=== PATIENT | female | born 1965 | race Caucasian/White ===

== ENCOUNTER 2017-12-20 05:50 | Day surgery (SDC) | payer OTHER, SELFPAY ==
[2017-12-20] VITALS (7 sets, daily range): BP systolic 89–111; BP diastolic 42–72; PULSE 58–76; RESP 16–18; TEMP 36.2–36.8; O2SAT 99–100; BMI 26.9
--- NOTE | 2017-12-20 06:56 | PCM.HP.STD ---
Problem List (1) Rectal bleeding Status: Acute History of Present Illness Date of Admission: 12/20/17 The patient is a 52 year old F who presents with bouts of rectal bleeding. She thinks it may be hemorrhoids. She has never had a previous colonoscopy. There is no family history of colon cancer. She denies abdominal pain. She has not had any weight loss. Past Medical History Allergies codeine Allergy (Verified 11/19/17 07:29) Angioedema tetracycline Allergy (Verified 11/19/17 07:29) Angioedema Home Medications: Ambulatory Orders Medication Instructions Recorded Multivitamin [Daily Multiple 1 ea PO DAILY 04/05/17 Vitamin] Surgical History: - - Breast cyst aspiration Skin lesion removals Smoking Status: Never smoker Review of Systems Constitutional: Denies: Weight Change Eyes: Denies: Blurred vision, Vision Change HEENT: Denies: Ear Pain, Eye Pain Cardiovascular: Denies: Chest Pain, Claudication Respiratory: Denies: Cough, Shortness of Breath Gastrointestinal: Denies: Hematemesis, Hematochezia Genitourinary: Denies: Dysuria, Hematuria Musculoskeletal: Denies: Leg Pain Skin: Denies: Jaundice Neurological: Denies: Confusion Psychiatric: Denies: Depression Endocrine: Denies: Change in Body Habitus Hematologic/ Lymphatic: Denies: Easy Bleeding VTE Information - Inpt Only VTE Present on Admission: No Patient Problems: Active and Suspected Problems (Last Updated 11/19/17 @ 07:25 by Michelle Pearce) Rectal bleeding (Acute) - Physical Exam General: Alert, Oriented x3, Cooperative HEENT: Atraumatic Oral: Moist Mucosa Neck: Supple Lungs: Clear to auscultation Cardiovascular: Regular rate Abdomen: Bowel Sounds Present, Soft, Non Tender Extremities: No clubbing Skin: No rashes Musculoskeletal: No Tenderness to Palpation of Joints or Extremities Lymphatic: No Cervical, Supraclavicular, or Inguinal Adenopathy Neurological: Cranial nerves II-XII grossly intact Vital Signs Temp Pulse Resp BP Pulse Ox 97.1 F L 73 16 111/72 100 12/20/17 06:12 12/20/17 06:12 12/20/17 06:12 12/20/17 06:12 12/20/17 06:12 Oxygen Delivery Method Room Air Weight: 166 lb 7.184 oz Body Mass Index (BMI) 26.9 Assessment/Plan Active and Suspected Problems (Last Updated 11/19/17 @ 07:25 by Michelle Pearce) Rectal bleeding (Acute) I am recommending colonoscopy with possible biopsy or polypectomy is indicated. Very careful inspection of the anal rectal area will be pursued as well. She has had an opportunity to ask and have questions answered. We will proceed at her discretion. Matt Sheffield M.D., F.A.C.S.
--- NOTE | 2017-12-20 07:22 | PCM.OPRPT ---
Problem List (1) Rectal bleeding Status: Acute Report of Operation Date of Procedure: 12/20/17 Pre-Operative Diagnosis: Rectal bleeding Post-Operative Diagnosis: Internal hemorrhoids. Tortuous sigmoid colon Surgery/Procedure Performed:: colonoscopy Description of Surgical Findings:: Timeout and informed consent was obtained. 52-year-old female was taken to the endoscopy suite. She was placed in a left loud skin position. Digital rectal exam performed after IV sedation of 100 mg Demerol and 4 mg of Versed. Some mild internal hemorrhoids noted. Flexible colonoscope inserted into the rectum and advanced through a very tortuous sigmoid colon. The scope was advanced through the transverse colon with some transabdominal pressure into the ascending colon. The cecum ileocecal valve area was nicely achieved. Bowel prep was very good. The scope was carefully withdrawn from the ascending transverse descending and sigmoid colon. No acute abnormalities were identified. The scope was retroflexed within the rectum anorectal verge inspected grade 2 internal hemorrhoids noted no active bleeding. Impression Episode of rectal bleeding likely secondary to internal hemorrhoids. Conservative medical recommendations for hemorrhoidal treatment recommended. No previous colonoscopy. Next screening colonoscopy in 10 years. Cc: Dr. Ok Yang Medications were given at 0704. Procedure started 0707. Cecum was reached at 0713.07. Procedure was completed at 0719.32 Matt Sheffeild M.D., F.A.C.S. Type of Anesthesia:: IV Sedation
== END 2017-12-20 08:17 | disposition home or self-care (01) ==
LOC: EN 05:52 → AC 05:53
PROVIDERS: Family Provider Family Medicine; PCP Family Medicine; Visit Provider Surgery
PROC: 0DJD8ZZ Inspection of Lower Intestinal Tract, Via Natural or Artificial Opening Endoscopic (ICD-10-PCS; CPT 45378; principal; 2017-12-20 06:55)
DX: K62.5 Hemorrhage of anus and rectum (principal); K64.8 Other hemorrhoids
CPT/HCPCS: 45378; J7120

== ENCOUNTER → 2018-06-26 07:08 | Outpatient (CLI) | payer OTHER, SELFPAY ==
--- NOTE | 2018-06-26 07:11 | BI_ITS ---
MAMMOGRAPHY - BILATERAL SCREENING REASON FOR EXAM: Female, 52 years old. Routine annual screening examination. PERTINENT HISTORY: Non-contributory. TECHNIQUE: Digital bilateral breast reinier (3D mammographic acquisition) in the CC and MLO projections. 2-D mediolateral oblique (MLO) and craniocaudad (CC) views of both breasts were obtained. CAD: Full Field Digital Mammography with Computer Added Detection was performed. COMPARISON: Comparison is made with prior study dated June 11, 2017 and May 16, 2016. FINDINGS: Breast Composition: The breasts are heterogeneously dense, which may obscure small masses. There are no dominant masses or suspicious calcifications. No other significant abnormalities are identified. There has been no significant change since the prior study. BI/SCREENING MAMM (CAD), BILAT IMPRESSION: Stable bilateral screening mammogram. Yearly follow-up mammogram recommended. (A) ASSESSMENT CATEGORY: BIRADS Category 1: Negative. A letter regarding these results will be sent to the patient by the facility within 30 days. Approximately 10% of breast cancers are not detected by mammography. A normal mammogram should not delay biopsy of a clinically suspicious abnormality. [id number] Electronically Signed: Luciano Howard MD at 8:33 EDT Tel [phone], Service support ,
== END ==
PROVIDERS: Family Provider Family Medicine; PCP Family Medicine; Visit Provider Family Medicine
DX: Z12.31 Encounter for screening mammogram for malignant neoplasm of breast (principal)
CPT/HCPCS: 77063; 77067

== ENCOUNTER → 2019-07-21 07:10 | Outpatient (CLI) | payer OTHER, SELFPAY ==
[2019-03-15 08:33] VITALS: BMI 25.8
--- NOTE | 2019-07-21 07:13 | BI_ITS ---
MAMMOGRAPHY - BILATERAL SCREENING REASON FOR EXAM: Female, 53 years old. Routine annual screening examination. PERTINENT HISTORY: Non-contributory. TECHNIQUE: Digital bilateral breast shilpa (3D mammographic acquisition) in the CC and MLO projections. 2-D mediolateral oblique (MLO) and craniocaudad (CC) views of both breasts were obtained. CAD: Full Field Digital Mammography with Computer Added Detection was performed. COMPARISON: Comparison is made with prior study June 26, 2018 and June 11, 2017. FINDINGS: Breast Composition: The breasts are heterogeneously dense, which may obscure small masses. There are no dominant masses or suspicious calcifications. No other significant abnormalities are identified. There has been no significant change since the prior study. BI/SCREEN MAMM (CAD) W/SHILPA BILAT IMPRESSION: Stable bilateral screening mammogram. Yearly follow-up mammogram recommended. (A) ASSESSMENT CATEGORY: BIRADS Category 1: Negative. A letter regarding these results will be sent to the patient by the facility within 30 days. Approximately 10% of breast cancers are not detected by mammography. A normal mammogram should not delay biopsy of a clinically suspicious abnormality. [id number] Electronically Signed: Luciano Howard, at 10:58 EDT , Service support ,
== END ==
PROVIDERS: Family Provider Family Medicine; PCP Family Medicine; Referring Provider Family Medicine; Visit Provider Family Medicine
DX: Z12.31 Encounter for screening mammogram for malignant neoplasm of breast (principal)
CPT/HCPCS: 77063; 77067

== ENCOUNTER → 2020-07-29 11:20 | Outpatient (CLI) | payer BC, SELFPAY ==
[2019-03-15 08:33] VITALS: BMI 25.8
[2020-07-29 16:28] LABS: Estradiol 38.8 pg/mL; Follicle Stimulating Hormone 11.3 mIU/mL; Thyroid Stim Hormone (TSH) 1.98 uIU/mL (0.358-3.74)
[2020-08-04 16:50] LABS: HPV HC, High Risk Negative (Negative)
== END ==
PROVIDERS: PCP Family Medicine; Visit Provider Family Medicine
DX: N92.3 Ovulation bleeding (principal)
CPT/HCPCS: 36415; 82670; 83001; 84144; 84443; 87624; 88175; G0145

== ENCOUNTER → 2020-08-05 07:16 | Outpatient (CLI) | payer BC, SELFPAY ==
[2019-03-15 08:33] VITALS: BMI 25.8
--- NOTE | 2020-08-05 07:18 | BI_ITS ---
MAMMOGRAPHY - BILATERAL SCREENING REASON FOR EXAM: Female, 54 years old. Routine annual screening examination. PERTINENT HISTORY: Non-contributory. TECHNIQUE: Digital bilateral breast shilpa (3D mammographic acquisition) in the CC and MLO projections. 2-D mediolateral oblique (MLO) and craniocaudad (CC) views of both breasts were obtained. CAD: Full Field Digital Mammography with Computer Added Detection was performed. COMPARISON: Comparison is made with prior study dated 07/21/2019 and 06/26/2018. FINDINGS: Breast Composition: The breasts are heterogeneously dense, which may obscure small masses. There are no dominant masses or suspicious calcifications. No other significant abnormalities are identified. There has been no significant change since the prior study. BI/SCREEN MAMM (CAD) W/SHILPA BILAT IMPRESSION: Stable bilateral screening mammogram. Yearly follow-up mammogram recommended. (A) ASSESSMENT CATEGORY: BIRADS Category 1: Negative. A letter regarding these results will be sent to the patient by the facility within 30 days. Approximately 10% of breast cancers are not detected by mammography. A normal mammogram should not delay biopsy of a clinically suspicious abnormality. [id number] Electronically Signed: Luciano Howard, at 8:52 EST , Service support ,
== END ==
PROVIDERS: PCP Family Medicine; Referring Provider Family Medicine; Visit Provider Family Medicine
DX: Z12.31 Encounter for screening mammogram for malignant neoplasm of breast (principal)
CPT/HCPCS: 77063; 77067

== ENCOUNTER → 2020-08-08 08:47 | Outpatient (CLI) | payer BC, SELFPAY ==
[2019-03-15 08:33] VITALS: BMI 25.8
--- NOTE | 2020-08-08 08:50 | US_ITS ---
STUDY: ULTRASOUND OF THE FEMALE PELVIS - COMPLETE REASON FOR EXAM: Female, 54 years old. IRREGULAR CYCLES, INTERMITTENT BLEEDING X 3 MONTHS LMP: 05/04/2020. TECHNIQUE: Transabdominal TECHNICAL QUALITY: Adequate. COMPARISON: None. FINDINGS: The uterus is anteverted and is in a midline position. The uterus is septated. The uterus is enlarged and measures 10.3 cm x 5.8 cm by 4.2 cm. Normal uterine cervix. The endometrium measures 3 mm in thickness, and is hyperechoic. There is no demonstrated endometrial mass. There is no demonstrated myometrial mass. I.U.D. - The patient does not have an I.U.D. The right ovary is visualized. The right ovary measures 2.2 cm x 1.8 cm x 1.5 cm. Multiple small follicles are seen within it. There is no visualized right adnexal mass or complex lesion. There is normal arterial and normal venous vascularity. The left ovary is visualized. The left ovary measures 3.1 cm x 1.6 cm x 2.3 cm. Small follicles are seen. There is no visualized left adnexal mass or complex lesion. There is normal arterial and normal venous vascularity. There is no fluid in the cul-de-sac. The pre void volume of the bladder was 497 ml. US/Pelvic (Non ) IMPRESSION: Septated uterus. Small follicles are seen in both ovaries. Electronically Signed: Luciano Howard, at 13:02 EST , Service support ,
== END ==
PROVIDERS: PCP Family Medicine; Referring Provider Family Medicine; Visit Provider Family Medicine
DX: N92.3 Ovulation bleeding (principal)
CPT/HCPCS: 76856

== ENCOUNTER 2020-11-03 06:52 | Day surgery (SDC) | payer BC, SELFPAY ==
[2019-03-15 08:33] VITALS: BMI 25.8
[2020-10-28 17:18] LABS: Hematocrit 41.4 % (37-47); Hemoglobin 12.8 g/dL (12.0-15.0); Mean Corp Hgb Conc 30.9 g/dL (32-36); Mean Corpuscular Hgb 26.6 pg (27.0-32.0); Mean Corpuscular Volume 86.1 fL (81-99); Platelet Count 329 K/mm3 (150-450); RBC Distribution Width CV 13.3 % (11.6-14.6); RBC Distribution Width SD 41.8 fl (35.1-43.9); Red Blood Count 4.81 M/mm3 (4.2-5.4); White Blood Count 5.3 K/mm3 (4.4-11.0)
--- NOTE | 2020-11-02 21:22 | PCM.HPOB.BLA ---
History and Physical Surgical History and Physical Name: ESAU GODWIN Age: 54 Date of : 1965 Esau Godwin, a 54 year old female 0 0 0 0 0, presents for Hysteroscopy, D&C, Bhavna on November 03, 2020 at 8:15. -- Esau presents as referral from Dr. Ocampo for history of AUB since . 54 y.o. G 0 P 0 non-smoker with LMP of 05-09-20 lasting until 08/22/20. Reports she had taken Aygestin x 7 days to help stop the bleeding. Recent pap screening and Mammogram with normal results. Adds she had an US done at [facility] on 08-08-20 with endometrium measuring 3 mm in thickness. Medications and Allergies listed. MEDICATIONS HISTORY: ALLERGIES: Tetracycline, Swelling-face & neck, Codeine and Swelling-face & neck Infections - Chicken pox Illnesses - no serious past illnesses Accidents - None Hospitalizations - see surgery Review of Systems: GENERAL - Denies fever, or chills SKIN - Denies skin changes EYES - wears eye glasses EARS - Denies difficulty hearing NOSE - Denies nasal congestion or bleeding MOUTH - Denies sore throat or difficulty swallowing NECK - Denies pain or swelling RESPIRATORY - Denies shortness of breath or wheezing CARDIOVASCULAR - Denies palpitations or chest pain GASTROINTESTINAL - Denies nausea, vomiting, diarrhea, constipation GENITOURINARY - Denies dysuria, frequency of urination, incontinence of urine MUSCULOSKELETAL - Denies joint or muscle pain NEUROLOGICAL - Denies localized numbness or weakness PSYCHIATRIC - Denies depression or anxiety ENDOCRINE - Denies heat or cold intolerance, weight loss or gain HEMATO-IMMUNOLOGIC - Denies excessive bleeding with cuts SOCIAL HISTORY: Alcohol Use - RARELY Smoking - Never Diet - no special diet Lifestyle - moderate stress lifestyle and Exercise - active Seat Belt Use - always Employer - [email or web address] Job Description - IT Support Tech Illicit Drug Use - None Sexual Activity - sexually inactive Control - Not active FAMILY HISTORY: MENSTRUAL HISTORY: LMP Known?- DefiniteAmount/Duration - excess amount, Regularity - Irregular, Frequency - variable days, LMP - 10/05/20, Age Onset Menarche - 14 PAST PREGNANCIES: Total Pregnancies - 0; Full Term Pregnancies - 0; Premature - 0; Abortions, Induced - 0; Abortions, Spontaneous - 0; Ectopics - 0; Multiple Births - 0; Living Children - 0 SURGICAL HISTORY: 1. wisdom teeth removed ; - PHYSICAL EXAM BP- 108/60 Sitting, Right arm, regular cuff Temp- 97.9 Taken Orally Weight- 157.64548 lbs Height- 66 inch BMI:25.39 CONSTITUTIONAL - NAD, well nourished, and well developed SKIN - No rash, lesions, or ulcers HEENT - Normocephalic, PERRLA, EOMI NECK - No nodes, no nuchal rigidity and thyroid normal size and texture LYMPH NODES - Palpation of lymph nodes in neck and groins within normal limits LUNGS - CTA x2 without wheezes, crackles or rales CARDIAC - Regular rate and rhythm without rubs, murmurs, or gallops ABDOMEN - Without hepatosplenomegaly, distention, masses, rebound, or guarding; normal bowel sounds; no hernias EXTREMITIES - No edema or calf tenderness NEUROLOGICAL - Cranial nerves II-XII grossly intact PSYCHIATRIC - A and O to time, place, person, mood and affect External Genital Vagina - non-tender without lesions Urethra/Urethral Meatus - non-tender Bladder - non-tender Vagina - vaginal ngo are pink and moist without loss of rugae and no evidence of atrophy Cervix - without cervical motion tenderness and has normal size and features without evident lesions Uterus - 10 cm in size, mobile and nontender Adnexa - clear without masses or tenderness ASSESSMENT/PLAN: 1. Abnormal Uterine And Vaginal Bleeding, Unspecified Referral from Dr. Ocampo. Pt with 3 months of constant heavy bleeding. Previously with regular periods. U/s at Dr. Ocampo office Uterus 10.3x5.8x4.2cm, Endo 3mm, ovaries wnl Aygestin taper was given with little improvement. Discussed EMB vs Medical vs Surgical options. Discussed risks for hyperplasia with nulliparous, otherwise neg smoking/obesity. Pt elects for Hysteroscopy D&C Bhavna. Understands r/b/a of EMB prior to procedure. declines Pap neg with PCP No changes in health, takes no meds. R/b/a discussed, all questions answered and consent was signed
[2020-11-03] VITALS (7 sets, daily range): BP systolic 112–133; BP diastolic 45–79; PULSE 55–78; RESP 14–16; TEMP 36.2–37.1; O2SAT 93–99; BMI 25.4
--- NOTE | 2020-11-03 | EMB_PTH ---
PATIENT: ESAU GODWIN [place] [facility] [place][id number] AGE/SX: 54/F ROOM: RE11/03/[address]: Dr. Juan Michel MD : 1965 BED: DIS: 11/03/2020 SPEC #: [id number] RECD: 11/03/20 12:43 STATUS: EILEEN REFang #: [id number] BRET: 11/03/20 00:[address]: Juan Michel DEPT: SURGICAL PATHOLOGY RECD BY: Cristopher Weaver ENTERED: 11/03/20 12:43 SP TYPE: ENDOM BX/C NIKHIL DR: Dr. Ok Yang MD Tissues: Endometrium, NOS Procedures: Surgery Specimen Level IV HEADER OPERATION: Hysteroscopy, D & C Bhavna PRE-OP DIAGNOSIS: Abnormal uterine and vaginal bleeding TISSUE SUBMITTED: Endometrial curettings MICROSCOPIC DIAGNOSIS Endometrial curettings: Fragments of proliferative endometrium. Fragments of benign ectocervical epithelium. SJ:francy 11/04/2020 MICROSCOPIC DESCRIPTION Slides are reviewed. GROSS DESCRIPTION Received in fixative is one container labeled with the patient's name and designated endometrial curettings. The specimen consists of multiple irregular fragments of dark parsons soft tissue that in aggregate measure 2.2 x 1.5 x 0.1 cm. The specimen is totally submitted in one cassette. / AM:francy 11/03/20 TC:4 CPT: 16283
[2020-11-03 07:25] LABS: Internal QC Validated? YES +Cl - CLEAR BKGD; Pregnancy, Urine Negative Negative
[2020-11-03] MEDS: Lactated Ringers 1,000 ML 120 ML IV ×2 (07:40→09:14)
--- NOTE | 2020-11-03 08:50 | PCM.OPRPT ---
Report of Operation Date of Procedure: 11/03/20 Pre-Operative Diagnosis: Abnormal uterine bleeding Post-Operative Diagnosis: Abnormal uterine bleeding Surgery/Procedure Performed:: Uroscopy, dilation curettage, endometrial ablation via Bhavna Description of Surgical Findings:: Surgeon: Juan Michel MD Anesthesia: MAC EBL: 5 cc Urine output: 100 cc IV fluids: 800 cc Complications: None Specimen: Endometrial curettings Findings: Normal cervix. No pathology found in uterine cavity. Hysteroscopy post endometrial ablation no new pathology found. Consent: Patient with abnormal uterine bleeding in need of hysteroscopy dilation curettage, endometrial ablation. Patient understands the risk of the procedure include but are not limited to visceral vascular injury, prolonged hospitalization, blood loss and need transfusion, reoperation. Patient state understanding wish to proceed. All questions were answered consent was signed. Procedure: Patient was brought back into the OR where MAC anesthesia was found to be adequate. Patient appeared draped in a dorsolithotomy position with yellowfin stirrups. A weighted speculum was placed in the posterior aspect of vagina single-tooth tenaculum used to grasp anterior cervix. Cervical dilators used to dilate the cervix. Hysteroscope was inserted and above findings were noted. Cavity length was found to be 7.5cm and cervical length was found to be 3cm. Bhavna device set to 4.5 cm. Bhavna device inserted safety test was passed x2. Endometrial ablation 420 seconds. Hysteroscope was reinserted and above findings were noted, no new pathology. Single-tooth tenaculum was removed and good hemostasis noted. Good hemostasis noted all counts correct x2. Patient tolerated procedure well was brought to recovery in stable condition.
--- NOTE | 2020-11-03 08:54 | DCINST_ITS ---
Discharge Diet: No Restrictions Discharge Activity: Return to Normal Activity, May Drive, May Shower May resume sexual activity in: 6 weeks Weight Bearing Status: Weight bearing as tolerated Call your doctor if your incision/area has: Foul Smelling Discharge Call your doctor if you observe: Fever of 101 or Higher, Shortness of breath, Chest pain Allergies/Adverse Reactions: Allergies codeine Allergy (Verified 11/03/20 07:21) Angioedema tetracycline Allergy (Verified 11/03/20 07:21) Angioedema Medications to take at Discharge Multivitamin [Daily Multiple Vitamin] 1 ea PO DAILY 04/05/17 Primary Care Physician: Ok Yang MD [Primary Care Provider] - Test Results: Test results from this visit will be discussed in further detail at your follow- up appointment, if applicable. Please Follow Up With: Juan Michel MD When: 2 weeks
== END 2020-11-03 09:50 | disposition home or self-care (01) ==
LOC: SDC 06:59 → AC 06:59
PROVIDERS: Anesthesiology; PCP Family Medicine; Referring Provider Obstetrics & Gynecology; Visit Provider Obstetrics & Gynecology
PROC: 0U5B8ZZ Destruction of Endometrium, Via Natural or Artificial Opening Endoscopic (ICD-10-PCS; CPT 58558; principal; 2020-11-03 08:15)
DX: N93.9 Abnormal uterine and vaginal bleeding, unspecified (principal); Z20.822 Contact with and (suspected) exposure to COVID-19
CPT/HCPCS: 00952; 58563; 36415; 81025; 85027; 86850; 86900; 86901; 87426; 88305; C9803; J7120; J2405

== ENCOUNTER → 2021-08-18 06:53 | Outpatient (CLI) | payer BC, SELFPAY ==
--- NOTE | 2021-08-18 06:58 | BI_ITS ---
MAMMOGRAPHY - BILATERAL SCREENING REASON FOR EXAM: Female, 55 years old. Routine annual screening examination. PERTINENT HISTORY: Non-contributory. TECHNIQUE: Digital bilateral breast shilpa (3D mammographic acquisition) in the CC and MLO projections. 2-D mediolateral oblique (MLO) and craniocaudad (CC) views of both breasts were obtained. CAD: Full Field Digital Mammography with Computer Added Detection was performed. COMPARISON: Comparison is made with prior study dated 08/05/2020 and 07/21/2019. FINDINGS: Breast Composition: The breasts are heterogeneously dense, which may obscure small masses. There are no dominant masses or suspicious calcifications. No other significant abnormalities are identified. There has been no significant change since the prior study. BI/SCRN MAMM (CAD)W/SHILPA BILAT IMPRESSION: Stable bilateral screening mammogram. Yearly follow-up mammogram recommended. (A) ASSESSMENT CATEGORY: BIRADS Category 1: Negative. A letter regarding these results will be sent to the patient by the facility within 30 days. Approximately 10% of breast cancers are not detected by mammography. A normal mammogram should not delay biopsy of a clinically suspicious abnormality. [id number] Electronically Signed: Luciano Howard MD at 8:38 EST , Service support ,
== END ==
PROVIDERS: PCP Family Medicine; Referring Provider Family Medicine; Visit Provider Family Medicine
DX: Z12.31 Encounter for screening mammogram for malignant neoplasm of breast (principal)
CPT/HCPCS: 77063; 77067

== ENCOUNTER → 2022-04-28 | Outpatient (CLI) | payer BC, SELFPAY ==
[2022-04-28 15:16] LABS: Mucous, Urine 0 SEEN /hpf (<or=2+); Red Blood Cells-Urine 0 SEEN /hpf (0-5)
[2022-04-28 15:36] LABS: Color, Urine Straw (Yellow); Glucose, Dipstick Normal (Normal); Ketone-Dipstick Negative (Negative); Leukocyte Esterase-Dipstick 100 /ul (Negative); Nitrite-Dipstick Negative (Negative); Occult Blood-Urine 25 /ul (Negative); Protein-Dipstick Negative (Negative); Urine Bilirubin Dipstick Negative (Negative); Urine Clarity Clear (Clear); Urine Urobilinogen Normal (Normal); Urine pH 6.5 (5.0 - 8.0)
[2022-04-28 16:48] LABS: Bacteria RARE /hpf (None Seen); White Blood Cells 5-10 SEEN /hpf (0-5)
[2022-04-28 16:50] LABS: Squamous Epithelial Cells - UA 0-5 SEEN /hpf (5-10)
== END | disposition home or self-care (01) ==
PROVIDERS: PCP Family Medicine; Visit Provider Nurse Practitioner Family
DX: N39.0 Urinary tract infection, site not specified (principal)
CPT/HCPCS: 81001; 87086; 87088

== ENCOUNTER → 2022-08-20 | Outpatient (CLI) | payer BC, SELFPAY ==
--- NOTE | 2022-08-20 07:20 | BI_ITS ---
MAMMOGRAPHY - BILATERAL SCREENING REASON FOR EXAM: Female, 56 years old. Routine annual screening examination. PERTINENT HISTORY: Non-contributory. TECHNIQUE: Digital bilateral breast shilpa (3D mammographic acquisition) in the CC and MLO projections. 2-D mediolateral oblique (MLO) and craniocaudad (CC) views of both breasts were obtained. CAD: Full Field Digital Mammography with Computer Added Detection was performed. COMPARISON: Mammogram from 08/18/2021, 08/05/2020. FINDINGS: Breast Composition: The breasts are heterogeneously dense, which may obscure small masses. There are no dominant masses or suspicious calcifications. No other significant abnormalities are identified. There has been no significant change since the prior study. BI/SCRN MAMM (CAD)W/SHILPA BILAT IMPRESSION: Stable bilateral screening mammogram. Yearly follow-up mammogram recommended. (A) ASSESSMENT CATEGORY: BIRADS Category 1: Negative. A letter regarding these results will be sent to the patient by the facility within 30 days. Approximately 10% of breast cancers are not detected by mammography. A normal mammogram should not delay biopsy of a clinically suspicious abnormality. Electronically Signed: Clyde Wilkinson, at 16:13 EST ,
== END | disposition home or self-care (01) ==
LOC: OPBI 07:19
PROVIDERS: PCP Family Medicine; Referring Provider Family Medicine; Visit Provider Family Medicine
DX: Z12.31 Encounter for screening mammogram for malignant neoplasm of breast (principal)
CPT/HCPCS: 77063; 77067

== ENCOUNTER → 2023-08-23 | Outpatient (CLI) | payer BC, SELFPAY ==
--- NOTE | 2023-08-23 07:15 | BI_ITS ---
MAMMOGRAPHY - BILATERAL SCREENING REASON FOR EXAM: Female, 57 years old. Routine annual screening examination. PERTINENT HISTORY: Non-contributory. History of right breast aspiration. TECHNIQUE: Digital bilateral breast shilpa (3D mammographic acquisition) in the CC and MLO projections. 2-D mediolateral oblique (MLO) and craniocaudad (CC) views of both breasts were obtained. CAD: Full Field Digital Mammography with Computer Added Detection was performed. COMPARISON: Comparison is made with prior examination August 20, 2022 and August 18, 2021. FINDINGS: Breast Composition: There are scattered areas of fibroglandular density. There are no dominant masses or suspicious calcifications. No other significant abnormalities are identified. There has been no significant change since the prior study. BI/SCRN MAMM (CAD)W/SHILPA BILAT IMPRESSION: Stable bilateral screening mammogram. Yearly follow-up mammogram recommended. (A) ASSESSMENT CATEGORY: BIRADS Category 1: Negative. A letter regarding these results will be sent to the patient by the facility within 30 days. Approximately 10% of breast cancers are not detected by mammography. A normal mammogram should not delay biopsy of a clinically suspicious abnormality. [id number] Electronically Signed: Luciano Howard MD at 15:41 EST ,
== END | disposition home or self-care (01) ==
PROVIDERS: PCP Family Medicine; Referring Provider Family Medicine; Visit Provider Family Medicine
DX: Z12.31 Encounter for screening mammogram for malignant neoplasm of breast (principal)
CPT/HCPCS: 77063; 77067

== ENCOUNTER → 2024-08-26 | Outpatient (CLI) | payer BC, SELFPAY | END | disposition home or self-care (01) | LOC: OPBI 08:35 | PROVIDERS: PCP Family Medicine; Referring Provider Family Medicine; Visit Provider Family Medicine | DX: Z12.31 Encounter for screening mammogram for malignant neoplasm of breast (principal) | CPT/HCPCS: 77063; 77067 ==

== ENCOUNTER → 2025-09-24 | Outpatient (CLI) | payer OTHER, SELFPAY ==
--- OUTSIDE RECORDS SUMMARY | 2025-09-24 14:37 | XMS RPT_ITS | CCD ---
Author Organization [facility] ion Partnership [facility] Care Team Providers Care Tank House Operator Name Role Phone Dr. Ok Yang Primary Care Provider Dr. Ok Yang Referring Provider KASI Woodall Attending Provider Maricruz De La Cruz Referring Unavailable Maricruz De La Cruz Attending Unavailable Maricruz De La Cruz Primary Care Unavailable Allergies Allergy Classification Reported Allergen(s) Allergy Type Date of Onset Reaction(s) Facility (3 sources) Codeine Drug Allergy 04-28-2022 Angioedema [facility] (3 sources) Tetracycline Drug Allergy 04-28-2022 Angioedema [facility] (1 source) Codeine Drug Allergy 04-28-2022 [facility] Repository (1 source) Tetracycline Drug Allergy 04-28-2022 [facility] Repository Medications Current Medications Medication Drug Class(es) Dates Sig (Normalized) Sig (Original) Multivitamin preparation (3 sources) Start: 04-05-2017 Multivitamin Active 1 EACH PO DAILY April 04, 2017 11:00pm Start: 04-05-2017 Multivitamin A ctive 1 EACH PO DAILY April 05, 2017 12:00am phenazopyridine hydrochloride 200 mg oral tablet (3 sources) Start: 04-28-2022 take 1 tablet by mouth three times daily Phenazopyridine (Pyridium) 200 mg tablet Active 200 MG PO THREE TIMES A DAY April 27, 2022 11:00pm Completed/Discontinued Medications Medication Drug Class(es) Dates Sig (Normalized) Sig (Original) cephalexin 500 mg oral capsule (3 sources) Cephalosporin Antibacterial Start: 04-05-2017 End: 11-19-2017 take 500 mg by mouth every six hours Cephalexin Discontinued 500 MG PO EVERY 6 HOURS 40 April 04, 2017 11:00pm November 19, 2017 7:29am nitrofurantoin, macrocrystals 25 mg / nitrofurantoin, monohydrate 75 mg oral capsule (3 sources) Nitrofuran Antibacterial Start: 04-28-2022 End: 05-03-2022 take 1 capsule by mouth every twelve hours at mealtime Nitrofurantoin Monohyd/M-Cryst (Macrobid) 100 mg capsule Discontinued 100 MG PO Q12H 10 5 April 27, 2022 11:00pm May 02, 2022 11:04pm must administer with a meal/food Problems Active Problems Problem Classification Problem Date Documented Da te Episodic/Chronic Gastrointestinal hemorrhage (3 sources) Rectal hemorrhage; Translations: [Hemorrhage of anus and rectum] 11-02-2020 Episodic Other screening for suspected conditions (not mental disorders or infectious disease) (1 source) Encounter for screening mammogram for malignant neoplasm of breast; Translations: [Encounter for screening mammogram for malignant neoplasm of breast] Onset: 08-31-2024 Episodic Urinary tract infections (2 sources) Urinary tract infection, site not specified; Translations: [Urinary tract infection, site not specified] Episodic Past or Other Problems Problem Classification Problem Date Documented Da te Episodic/Chronic Unclassified (3 sources) history breast cyst aspiration 04-19-2022 Unclassified (3 sources) history mole removals 04-19-2022 Results Test Name Value Interpretation Reference Range Facility SCRN MAMM (CAD)W/SHILPA BILATo n 08-26-2024 SCRN MAMM (CAD)W/SHILPA BILAT [facility] Imaging Services [address] [place] [id number] SCRN MAMM (CAD)W/SHILPA BILAT MR#: [id number] Acct: [id number] Name: ESAU GODWIN Rep #: [id number] : 1965 F 58 From: Deon Fletcher MD PCP: Dr. Maricruz De La Cruz MD Status: [facility] Study: SCRN MAMM (CAD)W/SHILPA BILAT Date of Exam: 08/01 04/22 Exam# [id number] Ordering Dr: Maricruz De La Cruz MD [id number] MAMMOGRAPHY - BILATERAL SCREENING 3-D TOMOSYNTHESIS REASON FOR EXAM: Female, 58 years old. Routine screening PERTINENT HISTORY: No significant family history. TECHNIQUE: 2-D mammograms and 3-D Tomosynthesis of the breast (s) were performed. CAD was performed. COMPARISON: 08/18/2021 FINDINGS: The breast composition is composed of scattered fibroglandular density. Scattered benign calcifications are seen. No dense spiculated masses or suspicious microcalcifications are identified. No architectural distortion is identified. There is no skin thickening or retraction. There has been no significant change since the prior study. BI/SCRN MAMM (CAD)W/SHILPA BILAT IMPRESSION: No mammographic signs of malignancy. Routine yearly mammograms recommended. ASSESSMENT CATEGORY: BIRADS Category 1: Negative. A letter regarding these results will be sent to the patient by the facility within 30 days. FOLLOW UP RECOMMENDATION: Yearly follow up mammogram recommended. (A) Approximately 10% of breast cancers are not detected by mammography. A normal mammogram should not delay biopsy of a clinically suspicious abnormality. Electronically Signed: Mukul Fletcher MD at 10:51 EST Reading Location ID and State: [address] [place] [address] , Service support , CC: Dr. Maricruz De La Cruz MD Quality Rn: Signed Normal [facility] Basophil percentageon 2021 Basophil percentage 5-10 SEEN /hpf 0-5 [facility] Work Phone: Bilirubin Test strip Ql (U)o n 04-28-2022 Bilirubin Ql (U) Negative Negative [facility] Work Phone: Ketones Test strip Ql (U)on 04-28-2022 Ketones Ql (U) Negative Negative [facility] Work Phone: Laboratory - Chemistry and C hemistry - challengeon 04-28-2022 Bilirubin Ql (U) Negative [facility] Work Phone: Glucose Ql (U) Negative [facility] Work Phone: Ketones Ql (U) Negative [facility] Work Phone: pH (U) 5.0 [pH] [facility] Work Phone: Specific gravity (U) [Rel density] 1.005 [facility] Work Phone: Urobilinogen (U) [Mass/Vol] Negative [facility] Work Phone: Laboratory - Hematology and Cell countson 04-28-2022 Hemoglobin Ql (U) Hemolyzed [facility] Work Phone: Laboratory - Specimen inform ationon 04-28-2022 Clarity (U) Clear [facility] Work Phone: Color (U) YELLOW [facility] Work Phone: Laboratory - Urinalysison Nitrite Ql (U) Negative [facility] Work Phone: Protein Ql (U) Negative [facility] Work Phone: Mucus LM Ql (Urine sed)on Mucus Ql (Urine sed) 0 SEEN /hpf [facility] Work Phone: Nitrite Test strip Ql (U)on 04-28-2022 Nitrite Ql (U) Negative Negative [facility] Work Phone: No Panel Informationon 04-28 Urine Leukocytes Positive [facility] Work Phone: Urine Non-Hemolyzed Blood Moderate [facility] Work Phone: Protein Test strip Ql (U)on 04-28-2022 Protein Ql (U) Negative Negative [facility] Work Phone: Squamous epithelial cells de tection in urine sediment by light microscopyon 04-28-2022 Epithelial cells.squamous LM Ql (Urine sed) 0-5 SEEN /hpf 5-10 [facility] Work Phone: Urine blood detectionon 04-01 RBC Ql (U) 25 /ul Negative [facility] Work Phone: RBC Ql (U) 0 SEEN /hpf 0-5 [facility] Work Phone: Urine clarityon 04-28-2022 Clarity (U) Clear Clear [facility] Work Phone: Urine color determinationon 04-28-2022 Color (U) Straw Yellow [facility] Work Phone: Urine glucose detectionon Glucose Ql (U) Normal mg/dl Normal [facility] Work Phone: Urine leukocyte esterase det ection by dipstickon 04-28-2022 Leukocyte esterase Test strip Ql (U) 100 /ul Negative [facility] Work Phone: Urine pHon 04-28-2022 pH (U) 6.5 [pH] 5.0 - 8.0 [facility] Work Phone: Urine sediment bacteria coun t by microscopy (number/high power field)on 04-28-2022 Bacteria LM.HPF (Urine sed) [#/Area] RARE /hpf None Seen [facility] Work Phone: Urine specific gravity measu rementon 04-28-2022 Specific gravity (U) [Rel density] 1.010 1.002-1.030 [facility] Work Phone: Urobilinogen Auto test strip Ql (U)on 04-28-2022 Urobilinogen Ql (U) Normal mg/dl Normal [facility] Work Phone: Culture, urine Bacteria identified Cx Nom (U) Presumptive E. coli [facility] Work Phone: Vital Signs Date Time Vital Sign Value Performing Clinician Faci lity 04-28-2022 13:11-0400 Body temperature 97.5 [degF] Dr. Ok Yang Work Phone: [facility] Work Phone: 04-28-2022 13:11-0400 Diastolic blood pressure 80 mm[Hg] Dr. Ok Yang Work Phone: [facility] Work Phone: 04-28-2022 13:11-0400 Heart rate 66 /min Dr. Ok Yang Work Phone: [facility] Work Phone: 04-28-2022 13:11-0400 Respiratory rate 15 /min Dr. Ok Yang Work Phone: [facility] Work Phone: 04-28-2022 13:11-0400 SaO2% (BldA) [Mass fraction] 99 % Dr. Ok Yang Work Phone: [facility] Work Phone: 04-28-2022 13:11-0400 Systolic blood pressure 126 mm[Hg] Dr. Ok Yang Work Phone: [facility] Work Phone: Encounters Encounter Date Encounter Type Care Provider Facility Start: 08-26-2024 End: 08-26-2024 ambulatory [facility] Facility:[facility] Start: 08-23-2023 End: 08-23-2023 ambulatory [facility] Work Phone: Start: 08-23-2023 End: 08-23-2023 Patient encounter procedure [facility] Work Phone: Start: 08-20-2022 End: 08-20-[address] Ok Yang Work Phone: [facility] Work Phone: Start: 08-20-2022 End: 08-20-[address] Ok Yang Work Phone: [facility] Start: 04-28-2022 End: 04-28-[address] Ok Yang Work Phone: [facility]Laboratory, Specimen Start: 04-28-2022 End: 04-28-[address] Ok Yang Work Phone: [facility] Procedures Date Procedure Procedure Detail Performing Clinician Start: 08-23-2023 Screening mammography Start: 08-20-2022 Screening mammography Abbie Yang Work Phone: Urine culture Dr. Ok whiting Work Phone: Immunizations Immunization Date Immunization Notes Care Provider Morenita mosher 04-05-2017 tetanus toxoid, redu pierre diphtheria toxoid, and acellular pertussis vaccine, adsorbed Dr. Ok Yang Work Phone: [facility] Payers Date Payer Category Payer Self-pay [id number] 2016 Unknown [id number] Private Health Insurance [id number] Unknown [id number] Social History Date Type Detail Facility Start: 04-28-2022 End: 04-28-2022 Tobacco smoking status NHIS Unknown if ever smoked [facility] Start: 1965 Sex Assigned At Female [facility] Evaluation note Note Date & Type Note Facility Evaluation note Diagnosis Onset Date Urinary tract infection none active [facility] Work Phone: Evaluation note Note Date & Type Note Facility Evaluation note No assessment information availa ble [facility] Work Phone: Chief Complaint and Reason for Visit Chief Complaint Urinary tract infect ion Reason for Visit Urinary tract infect ion Chief Complaint Urinary tract infect ion SCREENING Reason for Visit Urinary tract infect ion Chief Complaint SCREENING Family History No Family History Records Found Relationship Condition Age at Onset Recorded Date/T danny father Cardiac disease Unknown High blood cholesterol Unknown mother Malignant neoplasm Unknown Advance Directives No Advanced Directives Records Found Advance Directive Response Recorded Date/ Time Living Will No October 27 10:25am Power of Kettle Girl No October 27, 2020 10:25am Advance Directive Response Recorded Date/ Time Living Will No October 27 9:25am Power of Kettle Girl No October 27, 2020 9:25am Summary Purpose Additional Source Comments Goals (unrecognized section and content) Goals may be documented in a n alternate sectionGoals may be documented in an alternate sectionGoals may be documented in an alternate section Care Teams (unrecognized sec tion and content) Team Status: Active Member Role Status Dates Dr. Ok Yang MD Family Provider Active Dr. Ok Yang MD Primary Care Provider Active Team Status: Inactive Member Role Status Dates Dr. Ok Yang MD Primary Care Provider Active Dr. Maricruz De La Cruz MD Attending Provider, Jose gaitan Active INFORMATION SOURCE (unrecogn ized section and content) DATE CREATED AUTHOR 09/02/2024 [facility] FOR RECORDS PERTAINING TO PATIENTS WHO ARE OR HAVE BEEN ENROLLED IN A CHEMICAL DEPENDENCY/SUBSTANCEABUSE PROGRAM, SOME INFORMATION MAY BE OMITTED. This clinical summary was aggregated from multiple sources. Caution should be exercised in using it in the provision of clinical care. This summary normalizes information from multiple sources, and as a consequence, information in this document may materially change the coding, format and clinical context of patient data. In addition, data may be omitted in some cases. CLINICAL DECISIONS SHOULD BE BASED ON THE PRIMARY CLINICAL RECORDS. [employer] provides no warranty or guarantee of the accuracy or completeness of information in this document.
--- NOTE | 2025-09-24 14:41 | BI_ITS ---
EXAM: SCRN MAMM (CAD)W/SHILPA BILAT DATE: 09/24/2025 CLINICAL HISTORY: F, Age 59 y/o , SCREENING TECHNIQUE: Procedure Code: [id number] Modality: MG Procedure: SCRN MAMM (CAD)W/SHILPA BILAT COMPARISON: Prior exam(s) were compared FINDINGS: TISSUE DENSITY: There are scattered areas of fibroglandular density. Bilateral Breast Mammographic Findings: No significant masses, calcifications or other abnormalities are identified. BI/SCRN MAMM (CAD)W/SHILPA BILAT IMPRESSION: No mammographic evidence of malignancy. OVERALL FINAL ASSESSMENT BI-RADS 1: NEGATIVE. RECOMMENDATION: Routine annual follow-up in 1 Year Additional Recommendation none A letter with findings and recommendations will be mailed to the patient. Reading Location: [id number]
== END | disposition home or self-care (01) ==
LOC: OPBI 14:33
PROVIDERS: PCP Family Medicine; Referring Provider Family Medicine; Visit Provider Family Medicine
DX: Z12.31 Encounter for screening mammogram for malignant neoplasm of breast (principal)
CPT/HCPCS: 77063; 77067